=== PATIENT | male | born 1975 | race Asian ===

== ENCOUNTER 2018-08-28 19:13 | Emergency (ER) | payer SELFPAY ==
[~2018-08-28] VITALS: Ht 167.6 cm; Wt 75.0 kg
[2018-08-28] MEDS ORDERED: IBUPROFEN 600MG TABLET PO ONE (23:30)
[2018-08-29 00:16] VITALS: BP 127/77
== END 2018-08-29 00:54 | disposition home or self-care (01) ==
LOC: ER 19:13
DX: M54.5 Low back pain (principal); F17.210 Nicotine dependence, cigarettes, uncomplicated; Z90.49 Acquired absence of other specified parts of digestive tract; W01.0XXA Fall on same level from slipping, tripping and stumbling without subsequent striking against object, initial encounter; Y93.89 Activity, other specified; Y92.018 Other place in single-family (private) house as the place of occurrence of the external cause
CPT/HCPCS: 99283

== ENCOUNTER 2019-07-06 03:19 | Emergency (ER) | payer SELFPAY ==
[~2019-07-06] VITALS: Ht 167.6 cm; Wt 68.0 kg
[2019-07-06] MEDS ORDERED: NAPROXEN 250MG TABLET PO STA (04:48)
[2019-07-06] MEDS ORDERED: METOCLOPRAMIDE HCL 10MG TABLET PO STA (04:48)
[2019-07-06 05:07] LABS: CHLORIDE 108 mEq/L (98-107)
[2019-07-06 05:08] LABS: BASOPHILS % 0.3 % (0.0-2.0); EOSINOPHILS % 2.4 % (0.0-5.0); HEMATOCRIT. 40.1 % (42.0-52.0); HEMOGLOBIN. 13.9 g/dL (14.0-18.0); MEAN CORPUSCULAR HEMOGLOBIN 30.6 pg (28.0-32.0); MEAN CORPUSCULAR VOLUME 88.2 fL (80.0-94.0); MEAN PLATELET VOLUME 7.6 fl (7.4-10.4); MONOCYTES % 6.5 % (2.0-8.0); NEUTROPHILS % 49.8 % (40.0-76.0); PLATELET 184 x1000/uL (130-400); RED BLOOD CELL COUNT 4.54 mill/uL (4.7-6.1); RED CELL DISTRIBUTION WIDTH 12.8 % (11.6-14.6)
[2019-07-06 05:20] LABS: CLARITY URINE CLEAR (CLEAR); COLOR URINE YELLOW (YELLOW); KETONES URINE NEGATIVE (NEGATIVE); LEUKOCYTE ESTERASE URINE NEGATIVE (NEGATIVE); NITRITE URINE NEGATIVE (NEGATIVE); OCCULT BLOOD URINE NEGATIVE (NEGATIVE); PROTEIN URINE NEGATIVE (NEGATIVE); SPECIFIC GRAVITY URINE 1.021 (1.005-1.030)
[2019-07-06 06:15] VITALS: BP 128/79
== END 2019-07-06 06:59 | disposition home or self-care (01) ==
LOC: ER 03:19
DX: G44.89 Other headache syndrome (principal)
CPT/HCPCS: 36415; 80048; 81003; 85025; 99283; J8597; 99282

== ENCOUNTER 2019-12-22 22:38 | Emergency (ER) | payer OTHER ==
[~2019-12-22] VITALS: Ht 172.7 cm; Wt 70.0 kg
[2019-12-22] MEDS ORDERED: IBUPROFEN 600MG TABLET PO ONE (23:30)
[2019-12-22 23:41] VITALS: BP 120/68
== END 2019-12-22 23:42 | disposition home or self-care (01) ==
LOC: ER 22:38
DX: L03.011 Cellulitis of right finger (principal)
CPT/HCPCS: 99283

== ENCOUNTER 2020-01-09 21:53 | Emergency (ER) | payer OTHER ==
[~2020-01-09] VITALS: Ht 172.7 cm; Wt 73.0 kg
[2020-01-09 22:02] VITALS: BP 126/71
== END 2020-01-10 01:05 | disposition home or self-care (01) ==
LOC: ER 21:53
DX: M79.644 Pain in right finger(s) (principal); Z90.49 Acquired absence of other specified parts of digestive tract
CPT/HCPCS: 73130; 99283